=== PATIENT | male | born 2000 | race Caucasian/White ===

== ENCOUNTER 2021-11-19 04:12 | Emergency (ER) | payer OTHER ==
[~2021-11-19] VITALS: Ht 193 cm; Wt 68.9 kg
[2021-11-19 04:26] VITALS: BP 125/74
== END 2021-11-19 08:24 | disposition home or self-care (01) ==
LOC: ER 04:14
DX: S01.511A Laceration without foreign body of lip, initial encounter (principal); F17.210 Nicotine dependence, cigarettes, uncomplicated; W22.8XXA Striking against or struck by other objects, initial encounter; Y92.89 Other specified places as the place of occurrence of the external cause; Y93.89 Activity, other specified; Y99.8 Other external cause status
CPT/HCPCS: 40650; 99284